=== PATIENT | female | born 1945 | race Caucasian/White ===

== ENCOUNTER 2016-12-21 12:46 | Day surgery (SDC) | payer OTHER, BC ==
[~2016-12-21] VITALS: Ht 160 cm; Wt 82.1 kg
[~2016-12-21 12:46] MED LIST: PROBIOTIC1 EAC1 PO; ZANTAC150 MG PO
[2016-12-21 13:31] VITALS: BP 163/94
[2016-12-21 18:20] VITALS: BP 168/88
[2016-12-21 18:55] VITALS: BP 182/89
== END 2016-12-21 19:05 | disposition home or self-care (01) ==
LOC: SDC 12:46
PROC: 08B53ZZ Excision of Left Vitreous, Percutaneous Approach (ICD-10-PCS; principal; 2016-12-21)
DX: T85.22XA Displacement of intraocular lens, initial encounter (principal); Y83.8 Other surgical procedures as the cause of abnormal reaction of the patient, or of later complication, without mention of misadventure at the time of the procedure; I10 Essential (primary) hypertension; E78.5 Hyperlipidemia, unspecified; K21.9 Gastro-esophageal reflux disease without esophagitis; Z82.49 Family history of ischemic heart disease and other diseases of the circulatory system; Z80.0 Family history of malignant neoplasm of digestive organs; Z80.3 Family history of malignant neoplasm of breast; Z87.891 Personal history of nicotine dependence
CPT/HCPCS: J0690; J2250; J3300

== ENCOUNTER 2018-06-06 08:35 | Day surgery (SDC) | payer OTHER, BC ==
[~2018-06-06] VITALS: Ht 157.5 cm; Wt 81.2 kg
[~2018-06-06 08:35] MED LIST changes: +LISINOPRIL20 MG PO; +TURMERIC 500 M1 EACH PO
[2018-06-06 09:07] VITALS: BP 135/92
[2018-06-06 12:10] VITALS: BP 189/108
[2018-06-06 12:42] VITALS: BP 171/88
== END 2018-06-06 12:45 | disposition home or self-care (01) ==
LOC: SDC 08:35
DX: H43.11 Vitreous hemorrhage, right eye (principal); H52.11 Myopia, right eye; H33.311 Horseshoe tear of retina without detachment, right eye; H20.9 Unspecified iridocyclitis; I10 Essential (primary) hypertension; Z87.891 Personal history of nicotine dependence; K21.9 Gastro-esophageal reflux disease without esophagitis; E78.5 Hyperlipidemia, unspecified
CPT/HCPCS: J0690; J0713; J2250; J3010